=== PATIENT | male | born 1965 | race Caucasian/White ===

== ENCOUNTER 2017-05-24 13:16 | Day surgery (SDC) | payer BC ==
[~2017-05-24] VITALS: Ht 170.2 cm; Wt 86.2 kg
[~2017-05-24 13:16] MED LIST: DESYREL100 MG PO; FLONASE ALLERG9.9 ML BOTH NARES; LEXAPRO20 MG PO; LUNESTA2 MG PO; MOTRIN600 MG PO; NEURONTIN100 MG PO; ULTRAM50 MG PO; ZANAFLEX2 MG PO
== END 2017-05-24 14:30 | disposition home or self-care (01) ==
LOC: PAIN 13:16 → SDC 14:15 → PAIN 14:15
DX: M54.5 Low back pain (principal); M12.88 Other specific arthropathies, not elsewhere classified, other specified site; M62.838 Other muscle spasm; F41.8 Other specified anxiety disorders; R73.03 Prediabetes; Z79.891 Long term (current) use of opiate analgesic
CPT/HCPCS: J1030; S0020